=== PATIENT | male | born 1995 | race African-American/Black ===

== ENCOUNTER 2016-08-22 18:39 | Emergency (ER) | payer SELFPAY ==
[~2016-08-22] VITALS: Ht 170.2 cm; Wt 108.9 kg
[2016-08-22 18:52] VITALS: BP 121/73
[2016-08-22] MEDS ORDERED: predniSONE 20 MG TABLET PO ONE (19:15)
[2016-08-22] MEDS ORDERED: ACETAMINOPHEN 325 MG TABLET. PO ONE (19:15)
[2016-08-22] MEDS ORDERED: IPRATRPIUM/ALBUTEROL 0.5/2.5MG 3 ML NEBU. NEB ONE (19:15)
--- NOTE | 2016-08-22 19:28 | PHYS DOC ---
Past Medical History Past Medical History: No Pertinent History Past Surgical History: No Surgical History Alcohol Use: None Drug Use: Marijuana Adult General Chief Complaint Chief Complaint: ASTHMA HPI HPI Patient is a 20 year old male resents to the emergency department that he has had a cough with shortness of air for the last 2-3 days. Patient does state that he is a current smoker. He does state that he has had a productive cough. He is has a low-grade fever here in the emergency department. Patient denies any further symptoms at this time. He states he has not taken anything at home. He does state he did have asthma as a child. Review of Systems Review of Systems Constitutional: Denies fever or chills [] Eyes: Denies change in visual acuity, redness, or eye pain [] HENT: Denies nasal congestion or sore throat [] Respiratory: cough and shortness of breath [] Cardiovascular: No additional information not addressed in HPI [] GI: Denies abdominal pain, nausea, vomiting, bloody stools or diarrhea [] : Denies dysuria or hematuria [] Musculoskeletal: Denies back pain or joint pain [] Integument: Denies rash or skin lesions [] Neurologic: Denies headache, focal weakness or sensory changes [] Endocrine: Denies polyuria or polydipsia [] Current Medications Current Medications Current Medications Medications (Trade) Dose Ordered Sig/Kassandra Start Time Stop Time Status Last Admin Dose Admin Acetaminophen (Tylenol) 650 mg 1X ONCE 08/22/16 19:15 08/22/16 19:19 DC 08/22/16 19:15 650 MG Albuterol Sulfate (Ventolin Neb Soln) 2.5 mg 1X ONCE 08/22/16 20:15 08/22/16 20:16 DC 08/22/16 20:54 2.5 MG Albuterol/ Ipratropium (Duoneb) 3 ml 1X ONCE 08/22/16 19:15 08/22/16 19:19 DC 08/22/16 19:41 3 ML Prednisone (Prednisone) 40 mg 1X ONCE 08/22/16 19:15 08/22/16 19:19 DC 08/22/16 19:15 40 MG Allergies Allergies Allergies Coded Allergies Type Severity Reaction Last Updated Verified No Known Drug Allergies 08/22/16 No Physical Exam Physical Exam Constitutional: Well developed, well nourished, no acute distress, non-toxic appearance. [] HENT: Normocephalic, atraumatic, bilateral external ears normal, oropharynx moist, no oral exudates, nose normal. [] Eyes: PERRLA, EOMI, conjunctiva normal, no discharge. [] Neck: Normal range of motion, no tenderness, supple, no stridor. [] Cardiovascular:Heart rate regular rhythm, no murmur [] Lungs & Thorax: Bilateral breath sounds decreased with wheezes noted bilaterally posterior Skin: Warm, dry, no erythema, no rash. [] Back: No tenderness Extremities: No tenderness, no cyanosis, no clubbing, ROM intact, no edema. [] Neurologic: Alert and oriented X 3, normal motor function, normal sensory function, no focal deficits noted. [] Psychologic: Affect normal, judgement normal, mood normal. [] Current Patient Data Vital Signs Vital Signs Date Time Temp Pulse Resp B/P (MAP) Pulse Ox O2 Delivery O2 Flow Rate FiO2 08/22/16 20:55 98 Room Air 08/22/16 18:52 99.3 109 20 99.3 EKG EKG [] Radiology/Procedures Radiology/Procedures [] Course & Med Decision Making Course & Med Decision Making Pertinent Labs and Imaging studies reviewed. (See chart for details) Chest x-ray was negative per Dr. Fraser. Patient was provided with respiratory treatment here in the emergency department. He still continues to have wheezes throughout. Second treatment was ordered. Patient was provided his second treatment in which his breath sounds are clear now. Patient will be discharged home in stable condition signs and symptoms to return back to emergency department as been provided. Patient agrees with discharge instructions treatment regimens and follow-up recommendations. He was provided with a prescription for prednisone, albuterol for a rescue inhaler. He was also provided with a DuoNeb treatment. Patient states he currently does not have a nebulizer machine but does have a friend in which she can borrow his. [] Dragon Disclaimer Dragon Disclaimer This electronic medical record was generated, in whole or in part, using a voice recognition dictation system. Departure Departure Impression: Primary Impression: Asthma Disposition: HOME, SELF-CARE Condition: STABLE Referrals: NO PCP (PCP) Patient Instructions: Asthma, Adult, [id number] Additional Instructions: Activity as tolerated. Patient is prescribed. Pro-air is a rescue inhaler. Respiratory nebulizer treatments that she state you have able to borrow a friend 's treatment machine. Tylenol or ibuprofen for any fever chills or generalized body aches and discomfort. Follow-up to primary care physician in the next 3-5 days. Return back to emergency department for signs and symptoms of become worse. Scripts Prednisone (PREDNISONE) 20 Mg Tablet 40 MG PO DAILY for 7 Days, #14 TAB Prov: SAHARA FRANCO APRN 08/22/16 Albuterol Sulfate (PROAIR HFA INHALER) 8.5 Gm Hfa.aer.ad 1 PUFF INH PRN Q6HRS Y for SHORTNESS OF BREATH, #1 INHALER 0 Refills Prov: SAHARA FRANCO APRN 08/22/16 Ipratropium/Albuterol Sulfate (DUONEB 0.5-3(2.5) MG/3 ML) 3 Ml Ampul.neb 3 ML NEB QID, #1 EACH Prov: SAHARA FRANCO APRN 08/22/16 SAHARA FRANCO APRN Aug 22, 2016 19:28
[2016-08-22] MEDS ORDERED: ALBUTEROL SULFATE 2.5 MG/3 ML NEBU. NEB ONE (20:15)
[2016-08-22] MEDS ORDERED: PROAIR HFA8.5 GM INH (20:38)
[2016-08-22] MEDS ORDERED: IPRA3AMP NEB (20:38)
[2016-08-22] MEDS ORDERED: PRED20TA PO (20:38)
--- NOTE | 2016-08-23 07:42 | RAD ---
Chest, 2 views, 08/22/2016: History: Cough and wheezing The heart and size and pulmonary vascularity are normal. The lungs are clear. There is no evidence of pleural fluid. IMPRESSION: No acute cardiopulmonary abnormality is detected.
== END 2016-08-22 21:05 | disposition home or self-care (01) ==
LOC: ER 18:39
DX: J45.909 Unspecified asthma, uncomplicated (principal); R50.9 Fever, unspecified; F12.10 Cannabis abuse, uncomplicated; F17.200 Nicotine dependence, unspecified, uncomplicated
CPT/HCPCS: 71020; 94640; 99284; J7512; J7620

== ENCOUNTER 2016-11-23 07:34 | Emergency (ER) | payer SELFPAY ==
[~2016-11-23] VITALS: Ht 170.2 cm; Wt 116.3 kg
[~2016-11-23 07:34] MED LIST: IPRA3AMP NEB; PRED20TA PO; PROAIR HFA8.5 GM INH
[2016-11-23 08:10] VITALS: BP 140/87
[2016-11-23] MEDS ORDERED: SULF1TAB24 PO (08:34)
[2016-11-23] MEDS ORDERED: HYDR-971 PO (08:34)
--- NOTE | 2016-11-23 08:49 | PHYS DOC ---
Past Medical History Past Medical History: No Pertinent History Past Surgical History: No Surgical History Additional Information: 03/11 ppd Alcohol Use: Rarely Drug Use: Marijuana Adult General Chief Complaint Chief Complaint: ABSCESS HPI HPI Patient is a 21 year old male who presents with an infection to the midline left upper buttock that looks like it is a developing abscess. Patient states it is very painful and is gotten worse over the past 2 days. He has taken ibuprofen with no pain relief. He denies fever, nausea or vomiting. He states he has not seen a primary care provider in over 10 years. He does not have health insurance and is requesting information on clinics that will help with his health care. Review of Systems Review of Systems Constitutional: Denies fever or chills [] Respiratory: Denies cough or shortness of breath [] Cardiovascular: No additional information not addressed in HPI [] Musculoskeletal: Denies back pain or joint pain [] Integument: See HPI Neurologic: Denies headache, focal weakness or sensory changes [] Endocrine: Denies polyuria or polydipsia [] Current Medications Current Medications Current Medications Medications (Trade) Dose Ordered Sig/Kassandra Start Time Stop Time Status Last Admin Dose Admin Acetaminophen/ Hydrocodone Bitart (Lortab 5/325) 2 tab 1X ONCE 11/23/16 09:00 11/23/16 09:01 Tetanus/ Diphtheria Toxoids (Tenivac Syringe) 0.5 ml ONCE ONCE 11/23/16 09:00 11/23/16 09:01 Allergies Allergies Allergies Coded Allergies Type Severity Reaction Last Updated Verified No Known Drug Allergies 08/22/16 No Physical Exam Physical Exam Constitutional: Well developed, well nourished, no acute distress, non-toxic appearance. [] Cardiovascular:Heart rate regular rhythm, no murmur [] Lungs & Thorax: Bilateral breath sounds clear to auscultation [] Skin: Area of erythema on the left upper buttock, there is beginning to be an area of induration that is deep with no fluctuance noted, very tender to palpation Back: No tenderness, no CVA tenderness. [] Psychologic: Affect normal, judgement normal, mood normal. [] Current Patient Data Vital Signs Vital Signs Date Time Temp Pulse Resp B/P (MAP) Pulse Ox O2 Delivery O2 Flow Rate FiO2 11/23/16 08:10 98.2 96 18 99 Room Air 98.2 EKG EKG [] Radiology/Procedures Radiology/Procedures [] Course & Med Decision Making Course & Med Decision Making Pertinent Labs and Imaging studies reviewed. (See chart for details) []1. Skin infection The patient is to follow-up with a clinic for further evaluation and treatment. I explained that this abscess was not able to be opened at the hospital. Patient 's been placed on Bactrim DS and a small amount of pain medication. The patient was instructed not to drive or operate heavy machinery while taking pain medication. He is to use hot compresses multiple times daily. The patient was also given a tetanus vaccination in the emergency department. Dragon Disclaimer Dragon Disclaimer This electronic medical record was generated, in whole or in part, using a voice recognition dictation system. Departure Departure Impression: Primary Impression: Skin infection Disposition: HOME, SELF-CARE Condition: STABLE Patient Instructions: Abscess Additional Instructions: Please make an appointment at a clinic on Friday. We are placed on Bactrim DS and given a small amount of pain medication. Please take all antibiotics as directed. If worsening return to the ED. Scripts Hydrocodone/Apap 5-325 (NORCO 5-325 TABLET) 1 Each Tablet 1 TAB PO PRN Q6HRS Y for PAIN, #5 TAB 0 Refills Prov: MELI MONTAÑO APRN 11/23/16 Sulfamethoxazole/Trimethoprim (BACTRIM DS TABLET) 1 Each Tablet 1 TAB PO BID, #20 TAB Prov: MELI MONTAÑO APRN 11/23/16 MELI MONTAÑO APRN Nov 23, 2016 08:49
[2016-11-23] MEDS ORDERED: HYDROcodone/APAP 5/325MG 1 TAB TABLET PO ONE (09:00)
[2016-11-23] MEDS ORDERED: TETANUS AND DIPHTHERIA TOX/PF 0.5 ML DISP.SYRIN. VAX IM ONE (09:00)
[2016-11-24] MEDS ORDERED: HYDR-971 PO (22:42)
== END 2016-11-23 08:48 | disposition home or self-care (01) ==
LOC: ER 07:34
DX: L08.89 Other specified local infections of the skin and subcutaneous tissue (principal); F17.200 Nicotine dependence, unspecified, uncomplicated
CPT/HCPCS: 90471; 90714; 99283-25

== ENCOUNTER 2016-11-24 20:55 | Emergency (ER) | payer SELFPAY ==
[~2016-11-24 20:55] MED LIST changes: +HYDR-971 PO; +SULF1TAB24 PO
[2016-11-24 21:50] VITALS: BP 117/67
--- NOTE | 2016-11-24 22:08 | PHYS DOC ---
Past Medical History Past Medical History: No Pertinent History Past Surgical History: No Surgical History Alcohol Use: Rarely Drug Use: Marijuana Adult General Chief Complaint Chief Complaint: SKIN RASH/ABSCESS [facility] HPI Patient is a 21 year old male presents to the emergency department stating that he was seen here yesterday for an abscess on his left buttocks. Patient states that he was instructed that the area was too deep and that he would need to follow-up at a later time. He was provided with 5 pain pills and was provided with antibiotics. Patient states he no longer has any pain medication. She denies any drainage or discharge coming from the site. Review of Systems Review of Systems Constitutional: Denies fever or chills [] Eyes: Denies change in visual acuity, redness, or eye pain [] HENT: Denies nasal congestion or sore throat [] Respiratory: Denies cough or shortness of breath [] Cardiovascular: No additional information not addressed in HPI [] GI: Denies abdominal pain, nausea, vomiting, bloody stools or diarrhea [] : Denies dysuria or hematuria [] Musculoskeletal: Denies back pain or joint pain [] Integument: Denies rash or skin lesions. Complaint of abscess in the left buttocks. Neurologic: Denies headache, focal weakness or sensory changes [] Endocrine: Denies polyuria or polydipsia [] Current Medications Current Medications Current Medications Medications (Trade) Dose Ordered Sig/Kassandra Start Time Stop Time Status Last Admin Dose Admin Lidocaine/Sodium Bicarbonate (Buffered Lidocaine 1%) 20 ml 1X ONCE 11/24/16 22:30 11/24/16 22:31 DC Allergies Allergies Allergies Coded Allergies Type Severity Reaction Last Updated Verified No Known Drug Allergies 08/22/16 No Physical Exam Physical Exam Constitutional: Well developed, well nourished, no acute distress, non-toxic appearance. [] HENT: Normocephalic, atraumatic, bilateral external ears normal, oropharynx moist, no oral exudates, nose normal. [] Eyes: PERRLA, EOMI, conjunctiva normal, no discharge. [] Neck: Normal range of motion, no tenderness, supple, no stridor. [] Cardiovascular: Patient pink warm and dry Lungs & Thorax: No respiratory distress noted Skin: Warm, dry, no erythema, no rash. Patient with an abscess that is red warm and tender to the left buttocks area at the top of his sacrum area. No drainage or discharge noted from the site. Patient to have indurated and fluctuation noted. Extremities: No tenderness, no cyanosis, no clubbing, ROM intact, no edema. [] Neurologic: Alert and oriented X 3, normal motor function, normal sensory function, no focal deficits noted. [] Psychologic: Affect normal, judgement normal, mood normal. [] EKG EKG [] Radiology/Procedures Radiology/Procedures [] Course & Med Decision Making Course & Med Decision Making Pertinent Labs and Imaging studies reviewed. (See chart for details) Upon entering the room for assessment of the patient patient states as he is lying on his abdomen playing a game on his found states that he has an abscess in his butt crack. Patient is fully clothed from that the waits to down with shortness and underwear on. Patient was asked to remove his underwear. Explained to patient that as a provider he should not need to remove his underwear for him to be able to see the abscess. Patient was instructed to keep the area clean and dry. Recommended warm moist packs to the area. Patient will be provided with hydrocodone for severe pain and discomfort. Instructed patient this medication will cause drowsiness do not take any be alert and oriented. Patient agrees with discharge instructions, treatment regimens and follow-up recommendations. Patient is on Bactrim at the current time he will continue with this medication. His tetanus was updated yesterday. Patient agrees with discharge instructions treatment regimens and follow-up recommendations. Recommended a follow-up in 2 days to have this packing removed. Signs and symptoms to return back to emergency department as been provided. All questions and concerns have been answered at the bedside. [] Dragon Disclaimer Dragon Disclaimer This electronic medical record was generated, in whole or in part, using a voice recognition dictation system. Departure Departure Impression: Primary Impression: Abscess Additional Impression: Encounter for incision and drainage procedure Disposition: 01 HOME, SELF-CARE Condition: STABLE Referrals: NO PCP (PCP) Patient Instructions: Abscess, [id number], Incision and Drainage, Care After Additional Instructions: Activity as tolerated. Ibuprofen 800 mg every 8 hours with food stop taking few develop an upset stomach. Hydrocodone for severe pain and discomfort. This medication will cause drowsiness do not take any be alert and oriented. Continue with the antibiotics Bactrim DS that you were prescribed yesterday. Warm moist packs to the area 5 times a day. Do not remove the packing. Return back to the emergency department or follow-up the primary care physician in the next 2-3 days to have the packing removed. Return to emergency prior signs symptoms of become worse. Scripts Hydrocodone/Apap 5-325 (NORCO 5-325 TABLET) 1 Each Tablet 1 TAB PO PRN Q6HRS Y for PAIN, #15 TAB 0 Refills Prov: SAHARA FRANCO APRN 11/24/16 Incision and Drainage Incision and Drainage : Site: left buttock Blade Size: 11 I & D Procedure: betadine prep, sterile drapes applied Progress 1% lidocaine buffered was injected into the area with approximately 3 mL. Site was cleaned with Betadine and sterile drapes was placed over the area. #11 blade was used to incise the area with thick yellow secretions noted. Patient had packing placed into the area tolerated the procedure well. Problem Qualifiers SAHARA FRANCO APRN Nov 24, 2016 22:08
[2016-11-24] MEDS ORDERED: LIDOCAINE 1% / SOD BICARB 8.4% 20 ML VIAL. IJ ONE (22:30)
[2016-11-24] MEDS ORDERED: HYDR-971 PO (22:42)
== END 2016-11-24 22:50 | disposition home or self-care (01) ==
LOC: ER 20:55
DX: L02.31 Cutaneous abscess of buttock (principal)
CPT/HCPCS: 10060; 99283-25

== ENCOUNTER 2016-11-26 20:24 | Emergency (ER) | payer SELFPAY ==
[~2016-11-26] VITALS: Ht 170.2 cm; Wt 116.1 kg
[2016-11-26 20:32] VITALS: BP 147/67
--- NOTE | 2016-11-26 21:27 | PHYS DOC ---
Past Medical History Past Medical History: No Pertinent History Past Surgical History: No Surgical History Alcohol Use: Rarely Drug Use: Marijuana Adult General Chief Complaint Chief Complaint: WOUND RECHECK/SUTURE REMOVAL [facility] Patient is a 21 year old male presents to the emergency department for packing change. Patient was seen here approximately 2 days ago and had a incision and drainage of a pilonidal cyst. Patient states that he has had significant drainage coming from the site. He denies any fever, chills or any nausea or vomiting. He has been taking the antibiotics as prescribed. He states he has not taken a lot of pain medication however he does state the pain is been controllable. Review of Systems Review of Systems Constitutional: Denies fever or chills [] Eyes: Denies change in visual acuity, redness, or eye pain [] HENT: Denies nasal congestion or sore throat [] Respiratory: Denies cough or shortness of breath [] Cardiovascular: No additional information not addressed in HPI [] GI: Denies abdominal pain, nausea, vomiting, bloody stools or diarrhea [] : Denies dysuria or hematuria [] Musculoskeletal: Denies back pain or joint pain [] Integument: Denies rash or skin lesions patient presents for packing removal of an abscess. Neurologic: Denies headache, focal weakness or sensory changes [] Endocrine: Denies polyuria or polydipsia [] Allergies Allergies Allergies Coded Allergies Type Severity Reaction Last Updated Verified No Known Drug Allergies 08/22/16 No Physical Exam Physical Exam Constitutional: Well developed, well nourished, no acute distress, non-toxic appearance. [] HENT: Normocephalic, atraumatic, bilateral external ears normal, oropharynx moist, no oral exudates, nose normal. [] Eyes: PERRLA, EOMI, conjunctiva normal, no discharge. [] Neck: Normal range of motion, no tenderness, supple, no stridor. [] Cardiovascular: Patient pink warm and dry Lungs & Thorax: No respiratory distress noted. Skin: Warm, dry, no erythema, no rash. Patient with dressing removed that has some yellow drainage noted. Packing remains intact. Extremities: No tenderness, no cyanosis, no clubbing, ROM intact, no edema. [] Neurologic: Alert and oriented X 3, normal motor function, normal sensory function, no focal deficits noted. [] Psychologic: Affect normal, judgement normal, mood normal. [] Current Patient Data Vital Signs Vital Signs Date Time Temp Pulse Resp B/P (MAP) Pulse Ox O2 Delivery O2 Flow Rate FiO2 11/26/16 20:32 98.2 82 20 95 Room Air 98.2 EKG EKG [] Radiology/Procedures Radiology/Procedures [] Course & Med Decision Making Course & Med Decision Making Pertinent Labs and Imaging studies reviewed. (See chart for details) Packing was removed site was irrigated with saline. Packing was replaced into the area. Girlfriend was provided with instructions on how to remove the packing and how to reinsert the packing. Recommended that the patient take his hydrocodone prior to aching removal which needs to be completed every 2 days. Also recommended that the patient once the packing has been removed shower and then replace the packing with a dressing. Patient and girlfriend agree with treatment regimen. Patient will be discharged home in stable condition signs and symptoms to return back to emergency department has been provided. All questions and concerns been answered at patient's bedside. [] Dragon Disclaimer Dragon Disclaimer This electronic medical record was generated, in whole or in part, using a voice recognition dictation system. Departure Departure Impression: Primary Impression: Encounter for abscess packing removal Disposition: 01 HOME, SELF-CARE Condition: STABLE Referrals: NO PCP (PCP) Patient Instructions: Wound Care, [id number] Additional Instructions: Keep the area clean and dry. Do not remove the packing for 2 days. Take your hydrocodone prior to packing removal. Once the packing has been removed take a shower prior to reinsert in the packing. Continue your antibiotics as prescribed. Continue with ibuprofen in your hydrocodone for pain and discomfort. Remember the hydrocodone will cause drowsiness do not take any be alert and oriented. Follow-up the primary care physician as needed. Return back to emergency prior signs symptoms of become worse. SAHARA FRANCO [employer] CH[employer] OPERATOR Nov 26, 2016 21:26
== END 2016-11-26 21:33 | disposition home or self-care (01) ==
LOC: ER 20:24
DX: Z48.01 Encounter for change or removal of surgical wound dressing (principal); F12.10 Cannabis abuse, uncomplicated
CPT/HCPCS: 99283

== ENCOUNTER 2019-09-18 04:53 | Emergency (ER) | payer MEDICAID ==
[~2019-09-18 04:53] MED LIST changes: +ALBU2.5V8 INH; +HYDR-3164 PO; -HYDR-971 PO; -IPRA3AMP NEB; +IPRA3AMP29 NEB; -PROAIR HFA8.5 GM INH
[2019-09-18] MEDS ORDERED: HYDR-2761 PO (21:29)
[2019-09-18] MEDS ORDERED: IBUP-1060 PO (21:29)
[2019-09-18] MEDS ORDERED: CLIN150C14 PO (21:29)
== END 2019-09-18 05:20 | disposition left against medical advice (07) ==
LOC: ER 04:53
DX: K08.89 Other specified disorders of teeth and supporting structures (principal); Z53.21 Procedure and treatment not carried out due to patient leaving prior to being seen by health care provider

== ENCOUNTER 2019-09-18 19:37 | Emergency (ER) | payer MEDICAID ==
[~2019-09-18] VITALS: Ht 170.2 cm; Wt 136.4 kg
[2019-09-18 20:12] VITALS: BP 143/83
[2019-09-18] MEDS ORDERED: CLIN150C14 PO (21:29)
[2019-09-18] MEDS ORDERED: HYDR-2761 PO (21:29)
[2019-09-18] MEDS ORDERED: IBUP-1060 PO (21:29)
--- NOTE | 2019-09-18 21:30 | PHYS DOC ---
Past Medical History Past Medical History: Asthma Past Surgical History: No Surgical History Smoking Status: Current Every Day Smoker Alcohol Use: Rarely Drug Use: Marijuana General Adult EDM: Chief Complaint: TOOTH ACHE OR PAIN HPI: HPI: Patient is a 23 year old male who presents with dental pain for the last 6 months. Patient states he has an infected tooth and he has been unable to see a dentist because of the COVID virus has been keeping the area dentist office is closed lately. Patient states that he remembers biting on something hard and his lower left rear molar broke causing him pain and has since then become infected with pain radiating into his lower jaw and to his ear on the left. Patient denies fever chills, visual changes, nasal congestion or sore throat. Patient denies any cough or shortness of breath. Patient denies any chest pain or peripheral edema. Patient denies any abdominal pain nausea vomiting or diarrhea. Patient denies any back pain or joint pain or skin rashes. Patient denies headache or any focal weaknesses or sensory changes. Patient denies any swollen glands. Patient denies any depressions or anxieties. Patient states he smokes 1 pack cigarettes a day for the past 6 to 7 years. Review of Systems: Review of Systems: Constitutional: Denies fever or chills. Eyes: Denies change in visual acuity. HENT: Denies nasal congestion or sore throat. Complains of broken tooth left rear molar with pain. Patient complains of left ear pain this he associates with his painful molar on left. Respiratory: Denies cough or shortness of breath. Cardiovascular: Denies chest pain or edema. GI: Denies abdominal pain, nausea, vomiting, bloody stools or diarrhea. Musculoskeletal: Denies back pain or joint pain. Patient complains of left lower jaw pain he associates with his infected molar. Integument: Denies rash. Neurologic: Denies headache, focal weakness or sensory changes. Lymphatic: Denies swollen glands. Psychiatric: Denies depression or anxiety. Heart Score: Risk Factors: Risk Factors: DM, Current or recent (<one month) smoker, HTN, HLP, family history of CAD, obesity. Risk Scores: Score 0 - 3: 2.5% MACE over next 6 weeks - Discharge Home Score 4 - 6: 20.3% MACE over next 6 weeks - Admit for Clinical Observation Score 7 - 10: 72.7% MACE over next 6 weeks - Early Invasive Strategies Family History: Family History: Patient denies any family history associated with this visit. Current Medications: Patient denies being on any current medications. Allergies: Allergies: Patient denies any allergies to medications. Allergies Coded Allergies Type Severity Reaction Last Updated Verified No Known Drug Allergies 08/22/16 No Physical Exam: PE: Constitutional: Well developed, well nourished, no acute distress, non-toxic appearance. HENT: Normocephalic, atraumatic, bilateral external ears normal, oropharynx moist, no oral exudates, nose normal. Patient has left rear molar broken tooth with nerve exposed, associated gum area reddened, no purulent drainage noted. Left-sided mandible near infected tooth painful to palpation, no swelling or crepitus noted. Eyes: PERRLA, EOMI, conjunctiva normal, no discharge. Neck: Normal range of motion, no tenderness, supple, no stridor. Cardiovascular:Heart rate regular rhythm, no murmur Lungs & Thorax: Bilateral breath sounds clear to auscultation Abdomen: Bowel sounds normal, soft, no tenderness, no masses, no pulsatile masses. Skin: Warm, dry, no erythema, no rash. Back: No tenderness, no CVA tenderness. Neurologic: Alert and oriented X 3, normal motor function, normal sensory function, no focal deficits noted. Psychologic: Affect normal, judgement normal, mood normal. Current Patient Data: Vital Signs: Vital Signs Date Time Temp Pulse Resp B/P (MAP) Pulse Ox O2 Delivery O2 Flow Rate FiO2 09/18/19 20:12 98.8 70 20 143/83 (103) 95 Room Air 98.8 EKG: EKG: [] Radiology/Procedures: Radiology/Procedures: [] Course & Med Decision Making: Course & Med Decision Making Pertinent Labs and Imaging studies reviewed. (See chart for details) 23-year-old male patient arrives to the ER today complaining of a broken infected tooth for the past 6 months. Patient remembers biting on something hard and tooth broke, since then tooth has become painful. Patient states he has been seen several times in emergency departments and has been placed on antibiotics and pain medicines, patient states he is unable to see an area dentist because the COVID virus has been keeping the area of the dentist office is closed. Upon examination left most rear lower molar broken with nerve exposed. Area gumline reddened, no purulent drainage noted. Patient's oropharynx pink moist without infectious process noted. Patient's bilateral TMs within normal limits. No lymphadenopathy noted. Discussed with patient need to see a dentist as soon as possible to have his molar either repaired or removed. Discussed with patient will start on antibiotics and short-term pain medicine so that patient has time to make appointment and see dentist. PCS patient amenable to this discharge planning. Patient gave verbal understanding of need to follow-up with dentist, to take antibiotics as prescribed. Patient has no further questions or concerns. Dragon Disclaimer: Dragon Disclaimer: This electronic medical record was generated, in whole or in part, using a voice recognition dictation system. Departure Departure Impression: Primary Impression: Tooth pulpitis Additional Impressions: Dental caries Pain due to dental caries Disposition: HOME, SELF-CARE Condition: GOOD Referrals: NO PCP (PCP) Patient Instructions: Dental Abscess Additional Instructions: See a dentist soon. Take prescribed medications as directed. Return to ER for further concerns. Scripts Hydrocodone Bit/Acetaminophen (HYDROCODONE-APAP 5-325 ) 1 Tab Tablet 1 TAB PO PRN Q6HRS PRN for PAIN, #10 TAB 0 Refills Prov: ANALI RAMOS APRN 09/18/19 Ibuprofen (IBUPROFEN) 800 Mg Tablet 800 MG PO PRN Q6HRS PRN for INFLAMMATION, #14 TAB 0 Refills Prov: ANALI RAMOS APRN 09/18/19 Clindamycin Hcl (CLINDAMYCIN HCL) 150 Mg Capsule 450 MG PO TID for 7 Days, #63 CAP 0 Refills Prov: ANALI RAMOS APRN 09/18/19 Justicifation of Admission Dx: Justifications for Admission: Justification of Admission Dx: N/A ANALI RAMOS APRN Sep 18, 2019 21:30
[2019-09-18] MEDS ORDERED: HYDROcodone/APAP 5/325MG 1 TAB TABLET PO ONE (21:45)
== END 2019-09-18 21:46 | disposition home or self-care (01) ==
LOC: ER 19:37
DX: K04.01 Reversible pulpitis (principal); K08.89 Other specified disorders of teeth and supporting structures; H92.02 Otalgia, left ear; R68.84 Jaw pain; F12.90 Cannabis use, unspecified, uncomplicated; F17.210 Nicotine dependence, cigarettes, uncomplicated; J45.909 Unspecified asthma, uncomplicated
CPT/HCPCS: 99283